=== PATIENT | female | born 1990 | race Caucasian/White ===

== ENCOUNTER → 2017-09-16 | Emergency (ER) | payer SELFPAY ==
[~2017-09-16] MED LIST: HUMULIN R100 UNIT/1 INJ
== END ==
LOC: ED 13:41 → EDBD 13:41
DX: S02.19XA Other fracture of base of skull, initial encounter for closed fracture (principal); E10.65 Type 1 diabetes mellitus with hyperglycemia
CPT/HCPCS: 70450; 71045; 72125; 72170; 80053; 84703; 85025; 86850; 86900; 86901; 99285; G0480